=== PATIENT | female | born 1960 | race African-American/Black ===

== ENCOUNTER 2017-09-01 18:12 | Emergency (ER) | payer SELFPAY ==
[~2017-09-01] VITALS: Ht 157.5 cm; Wt 81.6 kg
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
[2017-09-01 19:32] VITALS: BP 180/70
== END 2017-09-01 20:30 ==
LOC: ERH 18:12
DX: Z04.1 Encounter for examination and observation following transport accident (principal); I10 Essential (primary) hypertension; V89.2XXA Person injured in unspecified motor-vehicle accident, traffic, initial encounter